=== PATIENT | female | born 1980 | race Caucasian/White ===

== ENCOUNTER → 2017-04-08 | Outpatient (CLI) | payer BC ==
--- NOTE | 2017-04-08 10:19 | MM ---
Reason for exam: screening (asymptomatic). Baseline mammogram. History: Family history of breast cancer in maternal grandmother at age 60. Took hormonal contraceptives beginning at age 18. Physical Findings: Nurse did not find any significant physical abnormalities on exam. MG Screening Mammo w CAD Bilateral CC and MLO view(s) were taken. The breast tissue is heterogeneously dense. This may lower the sensitivity of mammography. Focal asymmetry in the left breast middle depth upper aspect. These results were verbally communicated with the patient and result sheet given to the patient on 04/08/17. ASSESSMENT: Incomplete: need additional imaging evaluation, BI-RAD 0 RECOMMENDATION: Special view mammogram of the left breast. If lesion persists on supplemental views, image directed ultrasound is recommended. [facility] will attempt to contact patient to return for supplemental views and ultrasound if indicated.
--- NOTE | 2017-04-08 10:20 | MM ---
Reason for exam: additional evaluation requested from abnormal screening. History: Family history of breast cancer in maternal grandmother at age 60. Took hormonal contraceptives beginning at age 18. Physical Findings: Breast exam preformed at baseline screening. MG Work Up Mamm w CAD LT CC, MLO, LM, and spot compression MLO view(s) were taken of the left breast. No distinct lesion persists on additional view. These results were verbally communicated with the patient and result sheet given to the patient on 04/08/17. ASSESSMENT: Negative, BI-RAD 1 RECOMMENDATION: Routine screening mammogram of both breasts at age 40.
== END | disposition home or self-care (01) ==
LOC: RADMAMWWP 07:03
PROVIDERS: ATTEND Internal Medicine
DX: Z12.31 Encounter for screening mammogram for malignant neoplasm of breast (principal); R92.2 Inconclusive mammogram; R92.8 Other abnormal and inconclusive findings on diagnostic imaging of breast; Z80.3 Family history of malignant neoplasm of breast
CPT/HCPCS: G0202; G0206

== ENCOUNTER → 2018-04-28 | Outpatient (CLI) | payer BC ==
--- NOTE | 2018-04-29 14:21 | MM ---
Reason for exam: screening (asymptomatic). Last mammogram was performed 1 year and 1 month ago. History: Family history of breast cancer in maternal grandmother at age 60. Took hormonal contraceptives beginning at age 18. Physical Findings: A clinical breast exam by your physician is recommended on an annual basis and results should be correlated with mammographic findings. MG 3D Screening Mammo W/Cad Bilateral CC and MLO view(s) were taken. Prior study comparison: April 08, 2017, mammogram. April 08, 2017, left breast MG work up mamm w CAD LT. The breast tissue is heterogeneously dense. This may lower the sensitivity of mammography. No palpables marked. No significant changes when compared with prior studies. ASSESSMENT: Benign, BI-RAD 2 RECOMMENDATION: Routine screening mammogram of both breasts in 1 year. Can perform ultrasound of palpable abnormality in absence of clincially suspicious findings.
== END | disposition home or self-care (01) ==
LOC: RADMAMWWP 14:56
PROVIDERS: ATTEND Internal Medicine
DX: Z12.31 Encounter for screening mammogram for malignant neoplasm of breast (principal)
CPT/HCPCS: 77063; 77067

== ENCOUNTER 2019-05-23 07:02 | Emergency (ER) | payer BC ==
[2019-05-23 07:12] VITALS: TEMP 97.8
[2019-05-23] MEDS ORDERED: KETOROLAC 30 MG/ML 1 ML VIAL IVP STA (07:13)
[2019-05-23] MEDS ORDERED: ONDANSETRON 4 MG/2 ML VIAL IVP STA ×2 (07:13→09:31)
[2019-05-23] MEDS ORDERED: SODIUM CHLORIDE 0.9% 2,000 ML IV STA (07:13)
--- NOTE | 2019-05-23 07:25 | ED ---
Abdominal Pain HPI - General Chief Complaint: Abdominal Pain Stated Complaint: Poss Kidney Stones Time Seen by Provider: 05/23/19 07:13 Source: patient, RN notes reviewed Mode of arrival: ambulatory Limitations: no limitations - History of Present Illness Initial Comments: This a 39-year-old female presents emergency Department with chief complaint of left flank pain. Patient is a sudden onset of pain this morning. Patient states that she does have a history of kidney stones and this feels very similar. Patient does state that she had some achiness in her back, flank region since Thursday states has not been drinking as much water. She has no c omplaints of fever, chills, dysuria. Patient has not noticed any hematuria. Denies any chance . Patient's had prior gallbladder surgery, 2 sections and a right oophorectomy. Patient denies chest pain, shortness breath. Patient states nothing makes the pain feel better or worse she does admit to nausea but no emesis at this time. Patient states her bowel movements have been normal for her no melena hematochezia - Related Data Home Medications Medication Instructions Recorded Confirmed Albuterol Inhaler [Ventolin Hfa 1 - 2 puff INHALATION RT-QID PRN 05/23/19 05/23/19 Inhaler] Cetirizine HCl [Zyrtec] 10 mg PO DAILY 05/23/19 05/23/19 Fluticasone/Vilanterol [Breo 2 puff INHALATION RT-HS 05/23/19 05/23/19 Ellipta 100-25 Mcg Inhaler] Lisinopril [Zestril] 10 mg PO DAILY 05/23/19 05/23/19 Omeprazole [PriLOSEC] 20 mg PO DAILY 05/23/19 05/23/19 Previous Rx's Medication Instructions Recorded Cephalexin [Keflex] 500 mg PO Q8HR #21 cap 05/23/19 Hydrocodone/Acetaminophen [[place] 1 tab PO Q6HR PRN #12 tab 05/23/19 5-325] Ketorolac [Toradol] 10 mg PO Q8HR #15 tab 05/23/19 Ondansetron Odt [Zofran Odt] 4 mg PO Q8HR PRN #14 tab 05/23/19 Tamsulosin [Flomax] 0.4 mg PO DAILY #7 cap 05/23/19 Allergies Allergy/AdvReac Type Severity Reaction Status Date / Time Iodinated Contrast- Oral and Allergy Rash/Hives Verified 05/23/19 07:24 IV Dye Sulfa (Sulfonamide Allergy Rash/Hives Verified 05/23/19 07:24 Antibiotics) Review of Systems ROS Statement: Those systems with pertinent positive or pertinent negative responses have been documented in the HPI. ROS Other: All systems not noted in ROS Statement are negative. Past Medical History Past Medical History: Asthma, GERD/Reflux, Hypertension History of Any Multi-Drug Resistant Organisms: None Reported Past Surgical History: Section, Cholecystectomy Additional Past Surgical History / Comment(s): oophrectomy Past Psychological History: No Psychological Hx Reported Smoking Status: Never smoker Past Alcohol Use History: Occasional Past Drug Use History: None Reported General Exam Limitations: no limitations General appearance: alert, in no apparent distress, other (Patient appears uncomfortable) Head exam: Present: atraumatic, normocephalic, normal inspection Neck exam: Present: normal inspection, full ROM. Absent: tenderness, meningismus, lymphadenopathy Respiratory exam: Present: normal lung sounds bilaterally. Absent: respiratory distress, wheezes, rales, rhonchi, stridor Cardiovascular Exam: Present: regular rate, normal rhythm, normal heart sounds. Absent: systolic murmur, diastolic murmur, rubs, gallop, clicks GI/Abdominal exam: Present: soft, normal bowel sounds. Absent: distended, tenderness, guarding, rebound, rigid Back exam: Present: CVA tenderness (L). Absent: CVA tenderness (R) Neurological exam: Present: alert, oriented X3, CN II-XII intact Skin exam: Present: warm, dry, intact, normal color. Absent: rash Course Vital Signs 05/23/19 07:09 Temperature 97.8 F Pulse Rate 79 Respiratory 18 Rate Blood Pressure 166/127 O2 Sat by Pulse 98 Oximetry Medical Decision Making - Medical Decision Making 39-year-old female presents emergency department for left flank pain. Patient has a history kidney stones. X-ray shows proximal 4 mm ureteral calculi, bilateral nephrolithiasis. Patient urinalysis reveals hematuria. There are no noted wbcs but nitrite positive. Patient will be given antibiotics, given Rocephin emergency department. Patient afebrile. Patient will be discharged with pain medication, Flomax, Zofran, Toradol. - Lab Data Result diagrams: 05/23/19 07:35 05/23/19 07:35 Lab Results 05/23/19 05/23/19 05/23/19 Range/Units 07:35 07:35 08:30 WBC 7.7 (3.8-10.6) k/uL RBC 4.43 (3.80-5.40) m/uL Hgb 13.5 (11.4-16.0) gm/dL Hct 39.1 (34.0-46.0) % MCV 88.2 (80.0-100.0) fL MCH 30.5 (25.0-35.0) pg MCHC 34.6 (31.0-37.0) g/dL RDW 14.0 (11.5-15.5) % Plt Count 222 (150-450) k/uL Neutrophils % 72 % Lymphocytes % 19 % Monocytes % 6 % Eosinophils % 2 % Basophils % 0 % Neutrophils # 5.6 (1.3-7.7) k/uL Lymphocytes # 1.4 (1.0-4.8) k/uL Monocytes # 0.4 (0-1.0) k/uL Eosinophils # 0.1 (0-0.7) k/uL Basophils # 0.0 (0-0.2) k/uL Sodium 141 (137-145) mmol/L Potassium 3.7 (3.5-5.1) mmol/L Chloride 107 (98-107) mmol/L Carbon Dioxide 24 (22-30) mmol/L Anion Gap 10 mmol/L BUN 16 (7-17) mg/dL Creatinine 0.81 (0.52-1.04) mg/dL Est GFR (CKD-EPI)AfAm >90 (>60 ml/min/1.73 sqM) Est GFR (CKD-EPI)NonAf >90 (>60 ml/min/1.73 sqM) Glucose 108 H (74-99) mg/dL Calcium 9.2 (8.4-10.2) mg/dL Total Bilirubin 0.8 (0.2-1.3) mg/dL AST 23 (14-36) U/L ALT 35 (9-52) U/L Alkaline Phosphatase 57 (38-126) U/L Total Protein 6.5 (6.3-8.2) g/dL Albumin 4.2 (3.5-5.0) g/dL Lipase 50 (23-300) U/L Urine Color Urine Appearance (Clear) Urine pH (5.0-8.0) Ur Specific [place] (1.001-1.035) Urine Protein (Negative) Urine Glucose (UA) (Negative) Urine Ketones (Negative) Urine Blood (Negative) Urine Nitrite (Negative) Urine Bilirubin (Negative) Urine Urobilinogen (<2.0) mg/dL Ur Leukocyte Esterase (Negative) Urine RBC (0-5) /hpf Ur Squamous Epith Cells (0-4) /hpf Urine Bacteria (None) /hpf Urine Mucus (None) /hpf Urine HCG, Qual Not Detected (Not Detectd) 05/23/19 Range/Units 08:30 WBC (3.8-10.6) k/uL RBC (3.80-5.40) m/uL Hgb (11.4-16.0) gm/dL Hct (34.0-46.0) % MCV (80.0-100.0) fL MCH (25.0-35.0) pg MCHC (31.0-37.0) g/dL RDW (11.5-15.5) % Plt Count (150-450) k/uL Neutrophils % % Lymphocytes % % Monocytes % % Eosinophils % % Basophils % % Neutrophils # (1.3-7.7) k/uL Lymphocytes # (1.0-4.8) k/uL Monocytes # (0-1.0) k/uL Eosinophils # (0-0.7) k/uL Basophils # (0-0.2) k/uL Sodium (137-145) mmol/L Potassium (3.5-5.1) mmol/L Chloride (98-107) mmol/L Carbon Dioxide (22-30) mmol/L Anion Gap mmol/L BUN (7-17) mg/dL Creatinine (0.52-1.04) mg/dL Est GFR (CKD-EPI)AfAm (>60 ml/min/1.73 sqM) Est GFR (CKD-EPI)NonAf (>60 ml/min/1.73 sqM) Glucose (74-99) mg/dL Calcium (8.4-10.2) mg/dL Total Bilirubin (0.2-1.3) mg/dL AST (14-36) U/L ALT (9-52) U/L Alkaline Phosphatase (38-126) U/L Total Protein (6.3-8.2) g/dL Albumin (3.5-5.0) g/dL Lipase (23-300) U/L Urine Color Light Yellow Urine Appearance Cloudy H (Clear) Urine pH 7.5 (5.0-8.0) Ur Specific [place] 1.013 (1.001-1.035) Urine Protein Negative (Negative) Urine Glucose (UA) Negative (Negative) Urine Ketones Negative (Negative) Urine Blood Small H (Negative) Urine Nitrite Positive H (Negative) Urine Bilirubin Negative (Negative) Urine Urobilinogen <2.0 (<2.0) mg/dL Ur Leukocyte Esterase Moderate H (Negative) Urine RBC 46 H (0-5) /hpf Ur Squamous Epith Cells <1 (0-4) /hpf Urine Bacteria Rare H (None) /hpf Urine Mucus Rare H (None) /hpf Urine HCG, Qual (Not Detectd) Disposition Clinical Impression: Kidney stone, Ureteral calculi Disposition: HOME SELF-CARE Condition: Stable Instructions (If sedation given, give patient instructions): Kidney Stones (ED) Additional Instructions: Please return to the Emergency Department if symptoms worsen or any other concerns. Prescriptions: Tamsulosin [Flomax] 0.4 mg PO DAILY #7 cap Cephalexin [Keflex] 500 mg PO Q8HR #21 cap Hydrocodone/Acetaminophen [[place] 5-325] 1 tab PO Q6HR PRN #12 tab PRN Reason: Pain Ketorolac [Toradol] 10 mg PO Q8HR #15 tab Ondansetron Odt [Zofran Odt] 4 mg PO Q8HR PRN #14 tab PRN Reason: Nausea Is patient prescribed a controlled substance at d/c from ED?: Yes When asked, does pt state using other controlled substances?: No If prescribed controlled substance>3 days was MAPS reviewed?: Prescribed <3 Days If opioid is for acute pain is fill amount 7 days or less?: Yes If Rx opioid, was Start Talking consent form obtained?: Yes Referrals: Gauri Mantilla MD [Primary Care Provider] - 1-2 days Raghavendra Michelle MD [STAFF PHYSICIAN] - 1-2 days Time of Disposition: 09:46
[2019-05-23 07:46] LABS: Basophils % (A) 0 %; Eosinophils # (A) 0.1 k/uL (0-0.7); Eosinophils % (A) 2 %; HCT 39.1 % (34.0-46.0); HGB 13.5 gm/dL (11.4-16.0); Lymphocytes # (A) 1.4 k/uL (1.0-4.8); Lymphocytes % (A) 19 %; MCH 30.5 pg (25.0-35.0); MCHC 34.6 g/dL (31.0-37.0); MCV 88.2 fL (80.0-100.0); Mean Platelet Volume 7.6; Monocytes # (A) 0.4 k/uL (0-1.0); Monocytes % (A) 6 %; Neutrophils # (A) 5.6 k/uL (1.3-7.7); Neutrophils % (A) 72 %; Platelet Count 222 k/uL (150-450); RBC 4.43 m/uL (3.80-5.40); WBC 7.7 k/uL (3.8-10.6)
[2019-05-23] MEDS ORDERED: HYDROmorphone 0.5 MG/0.5 ML SYRINGE IVP STA ×2 (07:46→09:21)
[2019-05-23 07:58] LABS: ALT 35 U/L (9-52); AST 23 U/L (14-36); African American GFR (CKD) >90 (>60 ml/min/1.73 sqM); Albumin 4.2 g/dL (3.5-5.0); Alkaline Phosphatase 57 U/L (38-126); Anion Gap 10 mmol/L; Blood Urea Nitrogen 16 mg/dL (7-17); Calcium 9.2 mg/dL (8.4-10.2); Carbon Dioxide 24 mmol/L (22-30); Chloride 107 mmol/L (98-107); Glucose 108 mg/dL (74-99); Lipase 50 U/L (23-300); Potassium 3.7 mmol/L (3.5-5.1); Sodium 141 mmol/L (137-145); Total Bilirubin 0.8 mg/dL (0.2-1.3); Total Protein 6.5 g/dL (6.3-8.2)
--- NOTE | 2019-05-23 07:58 | XR ---
EXAMINATION TYPE: XR KUB DATE OF EXAM: 05/23/2019 COMPARISON: NONE HISTORY: Pain TECHNIQUE: One view abdominal series FINDINGS: The osseous structures are intact. The bowel gas pattern is nonspecific. Lung bases are clear. Surg ical clips in the gallbladder fossa Kidneys: Right kidney demonstrates a 5.5 mm calcification overlying the region of the renal pelvis. Left kidney demonstrates a 4 mm calcification overlying the region of the proximal left ureter. Nonspecific calcification left hemipelvis. IMPRESSION: 1. Nonspecific abdomen. Bilateral nephrolithiasis. Correlate with CT scan as clinically warranted.
[2019-05-23 08:52] LABS: Appearance,Urine Cloudy (Clear); Bacteria,Urine Rare /hpf; Bilirubin,Urine Negative (Negative); Blood,Urine Small (Negative); Color,Urine Light Yellow; Glucose,Urine (UA) Negative (Negative); Ketones,Urine Negative (Negative); Leukocyte Esterase,Urine Moderate (Negative); Mucus,Urine Rare /hpf; Nitrite,Urine Positive (Negative); PH, Urine 7.5 (5.0-8.0); Protein,Urine Negative (Negative); RBC,Urine 46 /hpf (0-5); Specific Gravity,Urine 1.013 (1.001-1.035); Squamous Epithelial Cell,Urine <1 /hpf (0-4); Urobilinogen,Urine <2.0 mg/dL (<2.0)
[2019-05-23] MEDS ORDERED: cefTRIAXone IN SWFI 1,000 MG/10 ML SYRINGE IVP STA ×2 (09:21→09:23)
[2019-05-23 09:38] VITALS: BP 128/91; PULSE 66; RESP 16
== END 2019-05-23 10:09 | disposition home or self-care (01) ==
LOC: EC 07:02
DX: N20.2 Calculus of kidney with calculus of ureter (principal); J45.909 Unspecified asthma, uncomplicated; K21.9 Gastro-esophageal reflux disease without esophagitis; I10 Essential (primary) hypertension; Z79.51 Long term (current) use of inhaled steroids; Z79.899 Other long term (current) drug therapy; Z88.2 Allergy status to sulfonamides; Z91.041 Radiographic dye allergy status; Z90.49 Acquired absence of other specified parts of digestive tract
CPT/HCPCS: 36415; 80053; 83690; 85025; 81001; 81025; 87086; 74018; 99284; 96374; 96375 ×3; 96376 ×2; 96361 ×2; J2405; J0696; J1885; J1170

== ENCOUNTER → 2019-07-08 | Outpatient (CLI) | payer BC ==
--- NOTE | 2019-07-10 07:15 | US ---
EXAMINATION TYPE: US renals and bladder DATE OF EXAM: 07/08/2019 COMPARISON: NONE CLINICAL HISTORY: N20.0 R renal stone, N201 L ureteral stone. History of kidney stones EXAM MEASUREMENTS: Right Kidney: 10.5 x 4.3 x 5.7 cm Left Kidney: 11.1 x 5.2 x 4.4 cm Right Kidney: stone lower pole = 1.1cm Left Kidney: no evidence of hydronephrosis Bladder: appears wnl Bilateral Jets seen: no There is no evidence for hydronephrosis at this point in time. No nephrolithiasis is seen on the rig ht. No masses are identified. The urinary bladder is anechoic. Bilateral ureteral jets are seen. IMPRESSION: No hydronephrosis of either kidney. There is a nonobstructing 1.1 cm left renal calculus seen in the lower pole. Urinary bladder is unremarkable.
--- NOTE | 2019-07-10 08:23 | XR ---
EXAMINATION TYPE: XR KUB DATE OF EXAM: 07/08/2019 5:00 PM CLINICAL HISTORY: Bilateral nephrolithiasis known to the patient TECHNIQUE: Single supine KUB image of the abdomen is obtained. COMPARISON: 05/23/2019. FINDINGS: Right renal calculus is similar to the prior measuring 6 mm. No definitive left-sided calcu li are seen on x-ray. Cholecystectomy clips are noted. No dilated large or small bowel. No abnormal c alcifications in the pelvis other than a small phlebolith. IMPRESSION: Stable appearance of an approximately 6 mm right renal calculus. No definitive left renal calculi see n as noted on the prior.
== END | disposition home or self-care (01) ==
LOC: RADUSMAIN 16:47
PROVIDERS: ATTEND Urology
DX: N20.0 Calculus of kidney (principal); Z88.3 Allergy status to other anti-infective agents; Z88.2 Allergy status to sulfonamides
CPT/HCPCS: 74018; 76770

== ENCOUNTER → 2019-10-03 | Outpatient (CLI) | payer BC ==
--- NOTE | 2019-10-03 15:38 | XR ---
EXAMINATION TYPE: XR lumbosacral spine min 4V DATE OF EXAM: 10/03/2019 COMPARISON: None HISTORY: Sciatica left side pain TECHNIQUE: Five-view lumbar spine FINDINGS: Note is made of a 0.7 cm inferior pole right renal cyst calcification. There 5 lumbar-type vertebral bodies. Pedicles are intact. Facet degenerative changes present L5-S1 b ilaterally and L4-5 on the left.. No spondylolysis is evident. Disc heights appear preserved. Vertebr al body heights are preserved. IMPRESSION: 1. Facet degenerative changes lower lumbar spine. 2. Right inferior pole renal stone
--- NOTE | 2019-10-03 15:38 | XR ---
EXAMINATION TYPE: XR KUB DATE OF EXAM: 10/03/2019 COMPARISON: 07/08/2019 INDICATION: Low back pain history of kidney stones TECHNIQUE: Single view abdomen FINDINGS: There is a normal bowel gas pattern. Psoas margins are normal. No organomegaly is present. There is a 0.7 cm calcification at the inferior pole right kidney. IMPRESSION: 1. Unremarkable Abdomen
== END | disposition home or self-care (01) ==
LOC: RADXRYALE 15:09
PROVIDERS: ATTEND Internal Medicine
DX: M47.816 Spondylosis without myelopathy or radiculopathy, lumbar region (principal); M54.5 Low back pain
CPT/HCPCS: 72110; 74018

== ENCOUNTER → 2020-05-30 | Outpatient (CLI) | payer BC ==
[2020-05-30 16:45] LABS: African American GFR (CKD) 92.7 (60.0-200.0); Anion Gap 6.6 mmol/L (4.00-12.00); Calcium 9.6 mg/dL (8.7-10.3); Carbon Dioxide 26.4 mmol/L (21.6-31.8); Potassium 4.5 mmol/L (3.5-5.5)
== END | disposition home or self-care (01) ==
LOC: LABWHC1 09:00
PROVIDERS: ATTEND Urology
DX: R82.994 Hypercalciuria (principal)
CPT/HCPCS: 36415; 80048; 83970

== ENCOUNTER → 2020-06-18 | Outpatient (CLI) | payer BC ==
--- NOTE | 2020-06-18 14:29 | MM ---
Reason for exam: screening (asymptomatic). Last mammogram was performed 2 years and 2 months ago. History: Family history of breast cancer in maternal grandmother at age 60. Took hormonal contraceptives beginning at age 18. Physical Findings: A clinical breast exam by your physician is recommended on an annual basis and results should be correlated with mammographic findings. MG 3D Screening Mammo W/Cad Bilateral CC and MLO view(s) were taken. Prior study comparison: April 28, 2018, bilateral MG 3d screening mammo w/cad. April 08, 2017, mammogram. The breast tissue is heterogeneously dense. This may lower the sensitivity of mammography. There are benign appearing round calcifications bilaterally. There is no discrete abnormality. ASSESSMENT: Benign, BI-RAD 2 RECOMMENDATION: Routine screening mammogram of both breasts in 1 year.
== END | disposition home or self-care (01) ==
LOC: RADMAMWWP 10:16
PROVIDERS: ATTEND Internal Medicine
DX: Z12.31 Encounter for screening mammogram for malignant neoplasm of breast (principal)
CPT/HCPCS: 77063; 77067

== ENCOUNTER → 2020-12-31 | Outpatient (CLI) | payer BC ==
--- NOTE | 2021-01-01 09:45 | US ---
EXAMINATION TYPE: US pelvis complete transvag DATE OF EXAM: 12/31/2020 COMPARISON: NONE CLINICAL HISTORY: N92.0 MENORRHAGIA WITH REGULAR CYCLE. ; C section x 2; left ovary removed; TECHNIQUE: Transvaginal (TV) and Transabdominal (TA) . Transabdominal sonographic images of the pel vis were acquired. Transvaginal sonographic images were medically necessary to better assess the fol lowing anatomy: endometrium Date of LMP: 12/05/2020 EXAM MEASUREMENTS: Uterus: 9.2 x 5.9 x 4.3 cm Endometrial Stripe: 3.2 cm Right Ovary: 3.8 x 2.4 x 2.1 cm Left Ovary: surgically removed per patient due to ovarian cyst 1. Uterus: Anteverted; multiple Nabothian Cysts in cervix with largest simple cyst = 0.7 x 0.6 x 0.6 cm; complex Nabothian Cyst seen = 0.7 x 0.6 x 0.6cm. 2. Endometrium: arcuate appearance to upper endometrium 3. Right Ovary: involuting cyst with ring of color flow = 2.3 x 1.8 x 1.6cm 4. Left Ovary: not seen 5. Bilateral Adnexa: wnl 6. Posterior cul-de-sac: wnl Anteverted uterus. There is 6 mm nabothian cyst in cervix. Marked heterogeneous thickening of the end ometrium to 32 mm seen best during transvaginal scanning. Perhaps trace free fluid on image [id number]. Left ovary surgically absent. Right ovary shows peripheral 1.6 cm slightly hypoechoic lesion. IMPRESSION: Marked heterogeneous thickening of the endometrium, given patient's history further inves tigation with dilatation and curettage should be considered.
== END | disposition home or self-care (01) ==
LOC: RADUSWWP 15:28
PROVIDERS: ATTEND Internal Medicine
DX: R93.89 Abnormal findings on diagnostic imaging of other specified body structures (principal); N92.0 Excessive and frequent menstruation with regular cycle
CPT/HCPCS: 76830; 76856

== ENCOUNTER → 2021-07-11 | Outpatient (CLI) | payer BC ==
[2021-07-11 15:16] LABS: HCT 39.9 % (34.0-46.0); HGB 13.5 gm/dL (11.4-16.0); Lymphocytes % (A) 17 %; MCV 94.2 fL (80.0-100.0); Mean Platelet Volume 7.6; Monocytes % (A) 5 %; Neutrophils % (A) 74 %; Platelet Count 235 k/uL (150-450); RBC 4.23 m/uL (3.80-5.40); RDW 13.6 % (11.5-15.5)
[2021-07-11 15:17] LABS: Basophils % (A) 0 %; Eosinophils # (A) 0.1 k/uL (0-0.7); Eosinophils % (A) 1 %; Lymphocytes # (A) 1.5 k/uL (1.0-4.8); Monocytes # (A) 0.5 k/uL (0-1.0); Neutrophils # (A) 6.7 k/uL (1.3-7.7)
== END | disposition home or self-care (01) ==
LOC: LABPAT 14:36
PROVIDERS: ATTEND Obstetrics & Gynecology
DX: Z01.812 Encounter for preprocedural laboratory examination (principal)
CPT/HCPCS: 85025

== ENCOUNTER → 2021-07-11 | Outpatient (CLI) | payer BC ==
--- NOTE | 2021-07-12 12:15 | MM ---
Reason for exam: screening (asymptomatic). Last mammogram was performed 1 year and 1 month ago. History: Family history of breast cancer in maternal grandmother at age 60. Took hormonal contraceptives beginning at age 18. Physical Findings: A clinical breast exam by your physician is recommended on an annual basis and results should be correlated with mammographic findings. MG 3D Screening Mammo W/Cad Bilateral CC and MLO view(s) were taken. Prior study comparison: June 18, 2020, bilateral MG 3d screening mammo w/cad. April 28, 2018, bilateral MG 3d screening mammo w/cad. The breast tissue is heterogeneously dense. This may lower the sensitivity of mammography. No significant changes when compared with prior studies. ASSESSMENT: Benign, BI-RAD 2 RECOMMENDATION: Routine screening mammogram of both breasts in 1 year.
== END | disposition home or self-care (01) ==
LOC: RADMAMWWP 14:32
PROVIDERS: ATTEND Obstetrics & Gynecology
DX: Z12.31 Encounter for screening mammogram for malignant neoplasm of breast (principal); Z80.3 Family history of malignant neoplasm of breast; Z79.3 Long term (current) use of hormonal contraceptives
CPT/HCPCS: 77063; 77067

== ENCOUNTER 2021-07-22 06:34 | Day surgery (SDC) | payer BC ==
[2021-07-16 14:36] VITALS: BMI 33.6
--- NOTE | 2021-07-21 11:27 | P.HPOB ---
History of Present Illness H&P Date: 07/21/21 Chief Complaint: Menorrhagia with regular cycle, family planning This is a 41 y.o. female, 2, para 2, who presents for dilatation and curettage with hysteroscopy and Novasure endometrial ablation and laparoscopic bilateral tubal ligation due to menorrhagia with regular cycle and family planning. She complains of a 1.5 year history of heavy menses with cramping, fatigue, and dizziness for the 1st couple days of her menses. She has tried BCPs, and they did help, but she continues to have heavy bleeding and cramping. Pelvic ultrasound shows uterus measuring 9.6 x 5 x 4.2 cm with endometrium 8 mm and normal right ovary. She is also requesting tubal ligation for family planning. OB Hx: . History of 2 sections. [employer] Hx: No history of STDs. Did have laparoscopic L. oophorectomy due to dermoid. Currently using withdrawal method. Social Hx: . Works as store administrative assistant. Review of Systems Constitutional: Denies chills, Denies fever Eyes: denies blurred vision, denies pain Ears, nose, mouth and throat: Denies headache, Denies sore throat Cardiovascular: Denies chest pain, Denies shortness of breath Respiratory: Denies cough Gastrointestinal: Denies abdominal pain, Denies diarrhea, Denies nausea, Denies vomiting Genitourinary: Reports dysmenorrhea, Reports menorrhagia Menstruation: Reports period heavy Musculoskeletal: Denies myalgias Integumentary: Denies pruritus, Denies rash Neurological: Denies numbness, Denies weakness Psychiatric: Denies anxiety, Denies depression Past Medical History Past Medical History: Asthma, GERD/Reflux, Hypertension, Mitral Valve Prolapse (MVP) History of Any Multi-Drug Resistant Organisms: None Reported Past Surgical History: Section, Cholecystectomy Additional Past Surgical History / Comment(s): L. Oophrectomy. Past Anesthesia/Blood Transfusion Reactions: No Reported Reaction, Motion Sickness Past Psychological History: No Psychological Hx Reported Smoking Status: Former smoker Past Alcohol Use History: Occasional Additional Past Alcohol Use History / Comment(s): Quit smoking 20 yrs ago. Past Drug Use History: None Reported - Past Family History Father Family Medical History: Cancer Medications and Allergies Home Medications Medication Instructions Recorded Confirmed Type Albuterol Inhaler (Mhu) [Ventolin 1 - 2 puff INHALATION QID PRN 05/23/19 07/16/21 History Hfa Inhaler] Lisinopril [Zestril] 10 mg PO DAILY 05/23/19 07/16/21 History Omeprazole [PriLOSEC] 20 mg PO 1200 05/23/19 07/16/21 History Beclomethasone Dip 80 Mcg/Puff 1 puff INHALATION BID 07/16/21 07/16/21 History [Qvar 80 mcg] Montelukast Sodium [Singulair] 10 mg PO DAILY 07/16/21 07/16/21 History hydroCHLOROthiazide [Hydrodiuril] 25 mg PO DAILY 07/16/21 07/16/21 History Allergies Allergy/AdvReac Type Severity Reaction Status Date / Time Iodinated Contrast Media Allergy Rash/Hives Verified 07/22/21 06:47 [Iodinated Contrast- Oral and IV Dye] Sulfa (Sulfonamide Allergy Rash/Hives Verified 07/22/21 06:47 Antibiotics) Exam Osteopathic Statement: *. No significant issues noted on an osteopathic structural exam other than those noted in the History and Physical/Consult. HEENT: within normal limits Heart: regular rate and rhythm Lungs: clear to auscultation bilaterally Abdomen: soft, non-tender Pelvic: uterus small, anteverted, non-tender, with no adnexal masses or tenderness Extremities: neg. Bonifacio's Assessment and Plan (1) Menorrhagia with regular cycle Current Visit: No Status: Acute Code(s): N92.0 - EXCESSIVE AND FREQUENT MENSTRUATION WITH REGULAR CYCLE SNOMED Code(s): 041960994 (2) Family planning Current Visit: No Status: Acute Code(s): Z30.09 - ENCOUNTER FOR OTH GENERAL CNSL AND ADVICE ON CONTRACEPTION SNOMED Code(s): 913606558 Plan: Proceed with dilatation and curettage with hysteroscopy and Novasure endometrial ablation with laparoscopic bilateral tubal ligation via fulgaration. I have discussed the risks, benefits, and alternative therapies for the above-mentioned procedure and for both sedation/anesthesia as well as necessary blood products administration, if indicated, as they pertain to this patient. The patient has indicated her understanding and acceptance of the risks and procedures discussed.
[~2021-07-22 06:34] MED LIST: DEXAMETHASONE SOD PHOSPHATE 4 MG/ML 1 ML VIAL IV ONE; HYDROmorphone 0.5 MG/0.5 ML SYRINGE IVP PRN; LACTATED RINGERS 1,000 ML IV SCH; ONDANSETRON 4 MG/2 ML VIAL IVP ONE; Pre Op ABX Message 1 EACH MISC MISCELLANE ONE
[2021-07-22] MEDS ORDERED: SCOPOLAMINE 1.5MG/72HR PATCH TRANSDERM ONE (07:24)
[2021-07-22] MEDS ORDERED: fentaNYL (PF) 50 MCG/ML 2 ML AMP ONE (07:25)
[2021-07-22] MEDS ORDERED: SUCCINYLCHOLINE CHLORIDE 100 MG/5 ML SYR IV ONE (07:25)
[2021-07-22] MEDS ORDERED: NEOSTIGMINE 1 MG/ML 10 ML VIAL ONE (07:25)
[2021-07-22] MEDS ORDERED: PROPOFOL 10 MG/ML 20 ML VIAL IV ONE (07:25)
[2021-07-22] MEDS ORDERED: KETOROLAC 15 MG/ML 1 ML VIAL ONE (07:25)
[2021-07-22] MEDS ORDERED: ROCURONIUM 10 MG/ML (5 ML VIAL) IV ONE (07:25)
[2021-07-22] MEDS ORDERED: LIDOCAINE 1% INJ 10MG/ML (20 ML MDV) ONE (07:25)
[2021-07-22] MEDS ORDERED: MIDAZOLAM 2 MG/2 ML VIAL ONE (07:25)
[2021-07-22] MEDS ORDERED: GLYCOPYRROLATE 0.2 MG/ML 2 ML VIAL ONE (07:25)
[2021-07-22] MEDS ORDERED: BUPIVACAINE (PF) 0.25% 30 ML VIAL SQ ONE ×2 (08:00)
--- NOTE | 2021-07-22 08:18 | P.OP ---
Date of Procedure: 07/22/21 Preoperative Diagnosis: Menorrhagia with regular cycle Family planning Postoperative Diagnosis: Same Procedure(s) Performed: Dilation and curettage with hysteroscopy and NovaSure endometrial ablation Laparoscopic right tubal ligation via fulguration Anesthesia: VANNA Surgeon: Marie Jose Estimated Blood Loss (ml): 10 Pathology: other (Endometrial curettings) Condition: stable Disposition: same day Indications for Procedure: This is a 41 y.o. female, 2, para 2, who presents for dilatation and curettage with hysteroscopy and Novasure endometrial ablation and laparoscopic bilateral tubal ligation due to menorrhagia with regular cycle and family planning. She complains of a 1.5 year history of heavy menses with cramping, fatigue, and dizziness for the 1st couple days of her menses. She has tried BCPs, and they did help, but she continues to have heavy bleeding and cramping. Pelvic ultrasound shows uterus measuring 9.6 x 5 x 4.2 cm with endometrium 8 mm and normal right ovary. She is also requesting tubal ligation for family planning. Operative Findings: Uterus is anteverted, sounded to 10-1/2 cm. Cervix is sounded to 4 cm. Upon hysteroscopy, both tubal ostia are visualized. No specific abnormalities are visualized. Upon laparoscopy, evidence of left salpingo-oophorectomy was noted. There was some adhesions anteriorly to the uterus. Right tube and ovary appeared normal. Uterine contour appeared normal. Appendix was visualized and appeared normal. Description of Procedure: The patient is taken to the operating room. She is placed in the dorsal lithotomy position after general anesthesia was given. She is prepped and draped in the normal sterile fashion. Bladder is drained with a catheter and then removed. Pelvic exam is performed under anesthesia. Uterus is found to be anteverted with no adnexal masses. She is placed in slight Trendelenburg position. A right angle retractor is used to visualize the cervix. The anterior lip of the cervix is grasped with a single-tooth tenaculum. Cervix is sounded to 4 cm. Uterus is sounded to 10.5 cm. Cervix is gently dilated with Soliman dilators until a hysteroscope could be passed. Hysteroscopy is performed using normal saline. The above noted findings are noted. Next a polyp forceps is introduced. A minimal amount of tissue was obtained. Next medium-sized size sharp curette was placed. A moderate amount of endometrial curettings were obtained. Next NovaSure array was inserted into the endometrial cavity. Length was set at 6.5 cm and width was determined to be 3.8 cm. Next cavity assessment was completed and passed on the first try. Next NovaSure array was fired at 136 W for 63 seconds. Next the array was removed, inspected and then discarded. Next the hysteroscope was reinserted. Uniform charring was noted. Pictures were taken. Hysteroscope was removed. Next a kroner uterine manipulator is inserted and the balloon is inflated. Single-tooth tenaculum was removed from the anterior lip of the cervix. Minimal bleeding was noted. Weighted speculum was removed from the vagina. Gloves are changed and attention is turned to the abdomen. A small stab incision was made with a scalpel in the infraumbilical fold. A towel clip was placed above the umbilicus for retraction. A 5 mm disposable bladeless trocar was then inserted into the peritoneal cavity under direct visualization. Once inside, pneumoperitoneum was achieved with CO2 gas. The insert was removed and the camera was placed. Intraperitoneal placement was confirmed. No bleeding was noted. Next the patient was placed in Trendelenburg position. A small stab incision was made suprapubically and a 5 mm disposable bladeless trocar was inserted into the peritoneal cavity under direct visualization. Once inside pelvic contents were inspected. There was evidence of previous left salpingo- oophorectomy. The right tube and ovary appeared normal. Next a bipolar Kleppinger instrument was placed through the inferior trocar and the midportion of the right tube was brought away from other structures and completely fulgurated on approximate 2-3 cm segment of the tube. Excellent hemostasis was noted. Pictures were taken. Pneumoperitoneum was released after the inferior trocar was removed under direct visualization. The upper trocar was then removed. The skin incisions were then closed with 4-0 Vicryl suture in a subcuticular fashion. Incisions were then injected with quarter percent Marcaine. Approximately 7 mL were used. Next the kroner uterine manipulator was removed. Minimal bleeding was noted. All sponge and needle counts are correct. The patient is then taken to recovery room in stable condition.
[2021-07-22 08:31] VITALS: TEMP 96.9
[2021-07-22] MEDS ORDERED: LACTATED RINGERS 1,000 ML IV ONE ×2 (08:51→10:04)
[2021-07-22 10:14] VITALS: RESP 16
[2021-07-22 10:43] VITALS: BP 95/61; PULSE 58
== END 2021-07-22 10:50 | disposition home or self-care (01) ==
LOC: OR 06:34
PROVIDERS: ATTEND Obstetrics & Gynecology
DX: N92.0 Excessive and frequent menstruation with regular cycle (principal); I10 Essential (primary) hypertension; I34.1 Nonrheumatic mitral (valve) prolapse; J45.909 Unspecified asthma, uncomplicated; K21.9 Gastro-esophageal reflux disease without esophagitis; Z79.51 Long term (current) use of inhaled steroids; Z87.891 Personal history of nicotine dependence; Z88.2 Allergy status to sulfonamides; Z88.8 Allergy status to other drugs, medicaments and biological substances; Z90.49 Acquired absence of other specified parts of digestive tract; Z90.721 Acquired absence of ovaries, unilateral
CPT/HCPCS: 58563; 58661; 81025; 88305; J2250; J1100; J2710; J2405; J2001; J3010; J1885; J0330; J2704; J1170

== ENCOUNTER → 2024-06-22 | Outpatient (CLI) | payer BC | END | disposition home or self-care (01) | LOC: LABPRL 10:28 | PROVIDERS: ATTEND Dermatology MOHS-Micrographic Surgery | DX: Z53.9 Procedure and treatment not carried out, unspecified reason (principal) ==

== ENCOUNTER → 2024-09-21 | Outpatient (CLI) | payer BC ==
--- NOTE | 2024-09-21 12:18 | XR ---
EXAMINATION TYPE: XR lumbosacral spine min 4V DATE OF EXAM: 09/21/2024 12:10 PM COMPARISON: 10/03/2019 CLINICAL INDICATION: Female, 44 years old with history of [id number] LBP, TECHNIQUE: Lumbar spine 5 view(s) obtained. FINDINGS: There are 5 lumbar-type vertebral bodies. Pedicles are intact. Disc heights are preserved. Vertebral body heights are preserved. Moderate facet degenerative changes are present L4-5 and L5-S1 with some mild facet degenerative changes present L3-4. Alignment is preserved. No spondylolisthesis evident. There is a 0.9 cm calcification at the inferior pole right kidney slightly larger than the previous e xam IMPRESSION: 1. Facet degenerative changes lower lumbar spine. 2. Right renal stone [facility], , 09/21/2024 12:15 PM
== END | disposition home or self-care (01) ==
LOC: RADXRYALE 11:59
PROVIDERS: ATTEND Internal Medicine
DX: M47.816 Spondylosis without myelopathy or radiculopathy, lumbar region (principal); N20.0 Calculus of kidney
CPT/HCPCS: 72110

== ENCOUNTER → 2025-04-18 | Outpatient (CLI) | payer BC ==
--- NOTE | 2025-04-18 08:33 | MM ---
Reason for Exam: Screening (asymptomatic). Last mammogram was performed 3 year(s) and 9 month(s) ago. Patient History: Menarche at age 13. First Full-Term at age 21. Right ovary removed at age 32. Patient has history of breast feeding. Hormonal Contraceptives, from age 18 until age 20. Maternal grandmother had breast cancer, age 60. Last menstrual period: 04/10/2025 Risk Values: Rose 5 year model risk: 0.7%. NCI Lifetime model risk: 8.6%. Prior Study Comparison: 04/28/2018 Bilateral Screening Mammogram, [facility]. 06/18/2020 Bilateral Screening Mammogram, [facility]. 07/11/2021 Bilateral Screening Mammogram, [facility]. Tissue Density: There are scattered areas of fibroglandular density. Findings: Analyzed By CAD. Benign-appearing bilateral axillary lymph nodes are redemonstrated. There is no suspicious group of microcalcifications or new suspicious mass in either breast. Overall Assessment: Negative, BI-RAD 1 Management: Screening Mammogram of both breasts in 1 year. . Patient should continue monthly self-breast exams. A clinical breast exam by your physician is recommended on an annual basis. This exam should not preclude additional follow-up of suspicious palpable abnormalities. Note on Rose scores and lifetime risk: 1. A Rose score greater than 3% is considered moderate risk. If this is the case, consider specialist referral to assess eligibility for a risk reducing agent. 2. If overall lifetime risk for the development of breast cancer is 20% or higher, the patient may qualify for future screening with alternating mammogram and breast MRI. [facility], , 04/18/2025 8:31 AM. Electronically signed and approved by: Man Robb M.D.
== END | disposition home or self-care (01) ==
LOC: RADMAMWWP 07:38
PROVIDERS: ATTEND Internal Medicine
DX: Z12.31 Encounter for screening mammogram for malignant neoplasm of breast (principal); R92.323 Mammographic fibroglandular density, bilateral breasts; Z80.3 Family history of malignant neoplasm of breast; Z92.0 Personal history of contraception
CPT/HCPCS: 77063; 77067